=== PATIENT | female | born 1955 | race Caucasian/White ===

== ENCOUNTER 2018-09-29 01:52 | Outpatient (CLI) | payer MEDICARE, OTHER, SELFPAY ==
--- NOTE | 2018-09-29 12:30 | DI.CTLCSR_ITS ---
SYMPTOMS/DIAGNOSIS: COPD, Z87.891, FORMER SMOKER CHEST CT FOR LUNG CANCER SCREENING: A low dose screening protocol was performed. Comparison is made with September,. The heart size is normal. There is mild calcification at the aortic annulus. The aorta is normal in diameter. There is a small hiatal hernia. There are underlying emphysematous changes and mild fibrotic changes. Linear areas of atelectasis are seen in the lingula and right middle lobe, as well as right lung base. No pulmonary nodules are identified. IMPRESSION: Negative. Annual low dose screening CT is recommended. Lung-RAD Category: 1- Negative Lung- RAD Management of Findings: Continue annual LDCT screening in 12 months
== END 2018-09-29 02:12 ==
PROVIDERS: PCP Internal Medicine; Visit Provider Internal Medicine
DX: Z12.2 Encounter for screening for malignant neoplasm of respiratory organs (principal); J44.9 Chronic obstructive pulmonary disease, unspecified; Z87.891 Personal history of nicotine dependence; K44.9 Diaphragmatic hernia without obstruction or gangrene; J84.10 Pulmonary fibrosis, unspecified
CPT/HCPCS: G0297

== ENCOUNTER 2019-03-25 09:04 | Outpatient (REF) | payer MEDICARE, OTHER, SELFPAY ==
[2019-03-25 22:00] LABS: Anion Gap 8.5 mmol/L (3-11); BUN 14 mg/dL (7-18); CO2 29.5 mmol/L (21.0-32.0); CREATININE 0.77 mg/dL (0.55-1.02); Calcium 9.2 mg/dL (8.5-10.1); Calculated LDL 160 mg/dL; Chloride 104 mmol/L (98-107); Cholesterol 232 mg/dL (<200); Glucose 92 mg/dL (74-106); HDL Cholesterol 54 mg/dL (40-60); Potassium 4.2 mmol/L (3.5-5.1); Sodium 142 mmol/L (136-145); Triglyceride 91 mg/dL (<150)
== END 2019-03-25 09:24 ==
LOC: NCHCN 09:04
PROVIDERS: PCP Internal Medicine; Visit Provider Internal Medicine
DX: E78.00 Pure hypercholesterolemia, unspecified
CPT/HCPCS: 80048; 80061

== ENCOUNTER 2019-11-26 00:53 | Outpatient (CLI) | payer MEDICARE, OTHER, SELFPAY ==
--- NOTE | 2019-11-26 12:40 | DI.CTLCSR_ITS ---
EXAM: CT CHEST LUNG CANCER SCREEN CLINICAL HISTORY: FORMER SMOKER, Z87.891,SCREENING FOR LUNG CA TECHNIQUE: Imaging Protocol: Axial computed tomography images with coronal and sagittal reformatted images were created and reviewed COMPARISON: CT CT CHEST LUNG CANCER SCREEN from 09/29/2018 FINDINGS: Mediastinum and Bertha: No dominant adenopathy or fluid collection. Pulmonary parenchyma: Scarring is noted at the right lower lobe as well as right middle lobe and ling abdiel. There is [id number] changes of centrilobular emphysema, greatest at the lung apices.. Lung Nodules: None. Pleura: No effusion or pneumothorax. Heart: The heart is not dilated. No coronary artery calcifications are seen. Aorta: Thoracic aorta non-dilated.Mild calcification. Upper abdomen: Small hiatal hernia. Bones: Mild degenerative disc changes in the thoracic spine. Soft Tissues: Unremarkable. IMPRESSION: Normal low dose CT lung screening Lung RADS Cat 1 - Negative: No nodules and definitely benign nodules modifier S Lung-RADS 1.0 CATEGORIES: Category 0 - Prior chest CT exam(s) being located for comparison. Category 1 - Annual screening in 12 months. No nodules or definitely benign nodules. Category 2 - Annual screening in 12 months. Benign appearance. Nodules with low likelihood of becomin g active cancer. Category 3 - 6-month follow-up. Probably benign. Short-term follow-up suggested. Nodules with low lik elihood of becoming active cancer. Category 4A - 3-month follow-up and CT/PET if >8 mm in size. Suspicious finding. Findings which requi re additional testing. Category 4B - Findings which require additional testing and tissue sampling. Suspicious finding. C Added to Any of the Above - History of prior lung cancer screening. S Added to Any of the Above - Significant unexpected other finding. RADIATION DOSE DELIVERED: 71.91mGy.cm Total DLP DATA REPOSITORY: All CT scans at this facility are submitted to the National Radiology Data Registry (NRDR) Dose Index Registry (DIR) with the [employer] ([employer]). RADIATION OPTIMIZATION: All CT scans at this facility use at least one of these dose optimization te chniques: automated exposure control; mA and/or kV adjustment per patient size (includes targeted exa ms where dose is matched to clinical indication); or iterative reconstruction.
== END 2019-11-26 01:13 ==
PROVIDERS: PCP Internal Medicine; Visit Provider Internal Medicine
DX: Z12.2 Encounter for screening for malignant neoplasm of respiratory organs (principal); Z87.891 Personal history of nicotine dependence
CPT/HCPCS: G0297

== ENCOUNTER 2020-05-27 13:36 | Outpatient (REF) | payer MEDICARE, OTHER, SELFPAY ==
[2020-05-27 21:43] LABS: Anion Gap 7.6 mmol/L (3-11); BUN 9 mg/dL (7-18); CO2 30.4 mmol/L (21.0-32.0); CREATININE 0.7 mg/dL (0.55-1.02); Calculated LDL 176 mg/dL (<100); Chloride 106 mmol/L (98-107); Cholesterol 257 mg/dL (<200); Glucose 88 mg/dL (74-106); HDL Cholesterol 64 mg/dL (40-60); Potassium 3.6 mmol/L (3.5-5.1); Sodium 144 mmol/L (136-145); Triglyceride 86 mg/dL (<150)
== END 2020-05-27 13:37 | disposition home or self-care (01) ==
LOC: NCHCN 13:36
PROVIDERS: PCP Internal Medicine; Visit Provider Internal Medicine
DX: E78.00 Pure hypercholesterolemia, unspecified (principal)
CPT/HCPCS: 80048; 80061

== ENCOUNTER 2020-07-01 21:16 | Outpatient (REF) | payer MEDICARE, OTHER, SELFPAY ==
[2020-07-01 21:49] LABS: Abs Immature Grans 0.03 10^3/uL (0.0-0.06); Absolute Basophil Count 0.06 10^3/uL (0.0-0.2); Absolute Eosinophil Count 0.11 10^3/uL (0.0-0.7); Absolute Lymphocyte Count 1.97 10^3/uL (1.2-3.4); Absolute Monocyte Count 0.51 10^3/uL (0.1-0.8); Absolute Neutrophil Count 3.79 10^3/uL (1.2-6.7); Basophils % 0.9; Eosinophils % 1.7; HCT 45.4 % (36.0-46.0); HGB 14.2 g/dL (11.2-15.7); Immature Grans % 0.5; Lymphocytes % 30.4; MCH 27.5 pg (27.0-33.0); MCHC 31.3 % (32.0-36.0); MPV 10.1 fL (8.0-11.0); Monocytes % 7.9; Neutrophils % 58.6; Nucleated RBC 0 %; Platelet Count 280 10^3/uL (130-400); RBC 5.16 10^6/uL (3.93-5.22); RDW 13.2 % (11.7-14.6); RDW-SD 43.1 fL; WBC 6.47 10^3/uL (4.4-10.8)
[2020-07-01 22:08] LABS: ALT 25 U/L (14-59); AST 20 U/L (15-37); Albumin 3.8 g/dL (3.4-5.0); Alkaline Phosphatase 75 U/L (46-116); Bilirubin, Direct 0.1 mg/dL (0.0-0.2); Bilirubin, Total 0.5 mg/dL (0.2-1.0); TSH 1.66 uIU/mL (0.36-3.74); Total Protein 7.3 g/dL (6.4-8.2)
== END 2020-07-01 21:17 | disposition home or self-care (01) ==
LOC: NCHCN 21:16
PROVIDERS: PCP Internal Medicine; Visit Provider Internal Medicine
DX: R19.7 Diarrhea, unspecified (principal)
CPT/HCPCS: 80076; 84443; 85025

== ENCOUNTER 2020-07-05 09:52 | Outpatient (REF) | payer MEDICARE, OTHER, SELFPAY ==
[2020-07-05 17:35] LABS: C Diff PCR Negative (Negative)
[2020-07-06 10:33] LABS: Campylobacter PCR Negative (Negative); Salmonella PCR Negative (Negative); Shiga Toxin PCR Negative (Negative); Shigella/Enteroinvasive Ecoli Negative (Negative)
== END 2020-07-05 09:53 | disposition home or self-care (01) ==
LOC: NCHCN 09:52
PROVIDERS: PCP Internal Medicine; Visit Provider Internal Medicine
DX: R19.7 Diarrhea, unspecified (principal)
CPT/HCPCS: 87493; 87505; 87177

== ENCOUNTER 2020-07-15 16:54 | Outpatient (REF) | payer MEDICARE, OTHER, SELFPAY ==
[2020-07-15 13:29] LABS: Lipase 70 U/L (73-393)
[2020-07-18 15:04] LABS: IgA 329 mg/dL (85-499); Interpretation (See Note); Tissue Transglutaminase IgA <1.2 U/mL (<4.0)
== END 2020-07-15 16:55 | disposition home or self-care (01) ==
LOC: NCHCN 16:54
PROVIDERS: PCP Internal Medicine; Visit Provider Internal Medicine
DX: R10.13 Epigastric pain (principal); R19.7 Diarrhea, unspecified
CPT/HCPCS: 82784; 83516; 83690

== ENCOUNTER 2020-07-19 07:51 | Outpatient (REF) | payer MEDICARE, OTHER, SELFPAY | END 2020-07-19 07:52 | disposition home or self-care (01) | LOC: NCHCN 07:51 | PROVIDERS: PCP Internal Medicine; Visit Provider Internal Medicine | DX: R19.7 Diarrhea, unspecified (principal) | CPT/HCPCS: 83630 ==

== ENCOUNTER 2020-11-18 07:57 | Outpatient (CLI) | payer MEDICARE, OTHER, SELFPAY ==
--- OUTSIDE RECORDS SUMMARY | 2020-11-18 08:00 | XMS_ITS ---
:1955 Author Care Team Providers Name Role Phone [facility] REC[facility] Primary Care Provider [phone] SHARON AUGUSTE MD Primary Care Provider [phone] JAYE CHANCE MD [employer] [phone] Allergies Code Code System Name Reaction Severity Status Onset 5698921 RxNorm Daliresp Diarrhea ? Active ? 7980 RxNorm Penicillin g ? ? Active ? Medications Name Status Start Date Stop Date ? ? Advair Diskus 500 mcg-50 Active ? Not shari ilable mcg/dose powder for inhalation Anoro Ellipta 62.5 mcg-25 Active ? Not av ailable mcg/actuation powder for inhalation betamethasone dipropionate 0.05 Active ? Not available % topical ointment Daliresp 500 mcg tablet Completed 09/06/2014 12/07/19 15 1 (one) Tablet: qd - daily gatifloxacin 0.5 % eye drops Active ? Not available ketorolac 0.4 % eye drops Active ? Not av ailable nicotine 14 mg/24 hr daily Active ? Not a vailable transdermal patch omeprazole 20 mg Active ? Not available capsule,delayed release paroxetine 30 mg tablet Active ? Not avai lable prednisolone acetate 1 % eye Active ? Not available drops,suspension ProAir HFA 90 mcg/actuation Active ? Not available aerosol inhaler Trelegy Ellipta 100 mcg-62.5 mcg-25 mcg powder for inhalation Ac tive ? Not available Inhale 1 puff every day by inhalation route. Problems Name Status Onset Date Source ? Vitamin D Deficiency Active 10/16/2017 ? Hypercholesterolemia Active 10/16/2017 ? Anxiety Active 10/16/2017 ? Depressive Disorder Active 10/16/2017 ? Allergic Rhinitis Active 10/16/2017 ? Chronic Obstructive Lung Disease Active 10/16/2017 ? Gastroesophageal Reflux Disease Active 10/16/2017 ? Emphysematous Bleb of Lung Active ? Histo ry Procedures Date Name Performed by ? 09/11/2017 LDCT, Chest, for Lung Cancer [facility] Radiology (Internal) Screening [address] [place] [address] ([address]) 10/17/2017 LDCT, Chest, for Lung Cancer Xray [facility] Screening [address] [place], [place] [address] ([address]) 11/23/2019 LDCT, Chest, for Lung Cancer [facility] Radiology (Internal) Screening [address] [place] [address] ([address]) Results Lab Results None recorded. Past Encounters None recorded. Social History Tobacco Smoking Status Former Smoker Notes: 46 yrs. X 2 ppd Vaccine List Vaccine Type pneumococcal, unspecified formulation 04/08/2012 Plan of Care Reminders Provider Appointments None ? ? recorded. Lab None ? ? recorded. Referral None ? ? recorded. Procedures None ? ? recorded. Surgeries None ? ? recorded. Imaging None ? ? recorded. Vitals 10/17/2017 01:30PM Office 15 Height Weight BMI Blood Pressure 152.4 cm 73.03 kg 31.4 kg/m2 144/80 mm[Hg] 10/31/2015 Weight Blood Pressure 69.49 kg 104/59 mm[Hg] 10/31/2015 Height 152.4 cm 12/06/2014 Weight Blood Pressure 74.39 kg 100/70 mm[Hg] 12/06/2014 Height 152.4 cm 09/06/2014 Height 152.4 cm 09/06/2014 Weight Blood Pressure 74.39 kg 124/78 mm[Hg]
[2020-11-18] MEDS: Albuterol HFA 18 GM 200 PUFF INH IH (08:57)
[2020-11-18] MEDS: Inhaler, Assist Device 1 EACH MC (08:57)
--- NOTE | 2020-11-18 14:53 | W.PFT ---
Date of service: 11/18/20 Time of Service: 08:02 Pulmonary Function Test Result Requesting Provider Laurie Interpretation Spirometry: There is moderate airflow obstruction with a significant bronchodilator response (16% and 370 cc) Lung Volumes: Patient declined pleth due to feeling of suffocation. Diffusion Capacity: There is reduced diffusion. Impression Moderate airflow obstruction with a significant bronchodilator response and reduced diffusion Note: Compared to spirometry performed October 17, 2017 there is minimal change in FEV1 and FVC. Clinical Correlation therefore is recommended.
== END 2020-11-18 07:58 | disposition home or self-care (01) ==
LOC: RT 07:57
PROVIDERS: PCP Internal Medicine; Visit Provider Student in an Organized Health Care Education/Training Program
DX: J44.9 Chronic obstructive pulmonary disease, unspecified (principal)
CPT/HCPCS: 94060; 94729

== ENCOUNTER 2020-12-02 03:35 | Outpatient (CLI) | payer MEDICARE, OTHER, SELFPAY ==
--- NOTE | 2020-12-02 07:00 | DI.CTLCSR_ITS ---
Exam(s) CT CHEST LUNG CANCER SCREEN EXAM: CT CHEST LUNG CANCER SCREEN CLINICAL HISTORY: Screening for lung cancer, CURRENT SMOKER, F17.210 TECHNIQUE: COMPARISON: CT CT CHEST LUNG CANCER SCREEN from 11/26/2019 FINDINGS: Noncontrast CT examination of the chest was performed utilizing low-dose lung cancer screening protoc ol. Images obtained through the upper show unremarkable appearance of visualized portions liver and spleen. There is a hiatal hernia. No mediastinal or hilar by noncontrast criteria. There is a new spiculated right upper lung mean diameter roughly 14 millimeters. This was not presen t on prior examination of November 2019. This is very suspicious for lung carcinoma. Note is again made right middle lobe and lingular areas of atelectasis and/or scarring, grossly uncha nged from prior study. Note is again made of severe central lobular emphysematous changes. IMPRESSION: Very suspicious new spiculated right apical lung mass. Biopsy recommended. No additional findings t o suggest metastatic disease. Lung RADS Cat 4B - Suspicious: Findings for which additional diagnostic testing and/or tissue sampli ng is recommended RADIATION DOSE DELIVERED: 94.56mGy.cm Total DLP 1.84mGy CTDIvol RADIATION OPTIMIZATION: All CT scans at this facility use at least one of these dose optimization te chniques: automated exposure control; mA and/or kV adjustment per patient size (includes targeted exa ms where dose is matched to clinical indication); or iterative reconstruction.
== END 2020-12-02 03:55 ==
PROVIDERS: PCP Internal Medicine; Visit Provider Student in an Organized Health Care Education/Training Program
DX: F17.210 Nicotine dependence, cigarettes, uncomplicated; Z12.2 Encounter for screening for malignant neoplasm of respiratory organs; R91.8 Other nonspecific abnormal finding of lung field
CPT/HCPCS: 71271

== ENCOUNTER 2021-05-29 18:30 | Outpatient (REF) | payer MEDICARE, OTHER, SELFPAY ==
[2021-05-31 12:43] LABS: COVID-19 RT-PCR UVMMC Result Negative (Negative)
== END 2021-05-29 18:31 | disposition home or self-care (01) ==
LOC: NCHCN 18:30
PROVIDERS: PCP Internal Medicine; Visit Provider Nurse Practitioner Family
DX: Z20.822 Contact with and (suspected) exposure to COVID-19 (principal); J06.9 Acute upper respiratory infection, unspecified
CPT/HCPCS: U0003

== ENCOUNTER 2021-08-08 17:25 | Outpatient (REF) | payer MEDICARE, OTHER, SELFPAY ==
[2021-08-08 14:48] LABS: BUN 9 mg/dL (7-18); CREATININE 0.8 mg/dL (0.55-1.02); Calcium 8.8 mg/dL (8.5-10.1); Calculated LDL 179 mg/dL (<100); Chloride 104 mmol/L (98-107); Cholesterol 268 mg/dL (<200); Glucose 89 mg/dL (74-106); HDL Cholesterol 70 mg/dL (40-60); Potassium 4.3 mmol/L (3.5-5.1); Sodium 141 mmol/L (136-145); Triglyceride 97 mg/dL (<150)
[2021-08-10 01:57] LABS: Vitamin D 25 Total 7.1 ng/mL (30-100)
== END 2021-08-08 17:26 | disposition home or self-care (01) ==
LOC: NCHCN 17:25
PROVIDERS: PCP Internal Medicine; Visit Provider Internal Medicine
DX: E78.00 Pure hypercholesterolemia, unspecified (principal); E55.9 Vitamin D deficiency, unspecified
CPT/HCPCS: 80048; 80061; 82306

== ENCOUNTER 2021-08-25 15:50 | Outpatient (REF) | payer MEDICARE, OTHER, SELFPAY ==
--- NOTE | 2021-08-25 13:35 | PAPFT_PTH ---
PATIENT: Loli Gómez LOC: [facility]#:[id number] AGE/SX: 66/F ROOM: RE08/25/[address]: Tarsha Britton : 1955 BED: DIS: 08/25/2021 SPEC #: [id number] RECD: 08/28/21 13:00 STATUS: JEFFERSON RAND #: [id number] ISHA: 08/25/21 13:[address]: Tarsha Britton [facility]PT[facility] Cytology RECD BY: Jayleen Pritchett Tissues: 1 - CX/ENDOCX FOR PAP SMEARS Procedures: PAP THIN PREP/[facility] Screening HPV DNA PROBE Comments: [id number]
== END 2021-08-25 15:51 | disposition home or self-care (01) ==
LOC: NCHCN 15:50
PROVIDERS: PCP Internal Medicine; Visit Provider Internal Medicine
DX: Z12.4 Encounter for screening for malignant neoplasm of cervix (principal); Z11.51 Encounter for screening for human papillomavirus (HPV); Z01.419 Encounter for gynecological examination (general) (routine) without abnormal findings
CPT/HCPCS: 88142; 87624

== ENCOUNTER 2021-11-20 14:44 | Outpatient (REF) | payer MEDICARE, OTHER, SELFPAY ==
[2021-11-20 21:15] LABS: Calculated LDL 95 mg/dL (<100); Cholesterol 172 mg/dL (<200); HDL Cholesterol 65 mg/dL (40-60); Triglyceride 63 mg/dL (<150)
[2021-11-20 21:33] LABS: Vitamin D 25 Total 24.2 ng/mL (30-100)
== END 2021-11-20 14:45 | disposition home or self-care (01) ==
LOC: NCHCN 14:44
PROVIDERS: PCP Internal Medicine; Visit Provider Internal Medicine
DX: E78.00 Pure hypercholesterolemia, unspecified (principal); E55.9 Vitamin D deficiency, unspecified
CPT/HCPCS: 80061; 82306

== ENCOUNTER 2022-11-26 11:56 | Outpatient (REF) | payer MEDICARE, SELFPAY ==
[2022-11-26 15:52] LABS: Anion Gap 8.4 mmol/L (3-11); BUN 11 mg/dL (7-18); CO2 28.6 mmol/L (21.0-32.0); CREATININE 0.8 mg/dL (0.55-1.02); Calcium 8.7 mg/dL (8.5-10.1); Calculated LDL 81 mg/dL (<100); Chloride 103 mmol/L (98-107); Cholesterol 172 mg/dL (<200); Estimated GFR 81.72 (mL/min/1.73m2); Glucose 83 mg/dL (74-106); HDL Cholesterol 75 mg/dL (40-60); Potassium 3.4 mmol/L (3.5-5.1); Sodium 140 mmol/L (136-145); Triglyceride 81 mg/dL (<150)
== END 2022-11-26 11:57 | disposition home or self-care (01) ==
LOC: NCHCN 11:56
PROVIDERS: PCP Internal Medicine; Visit Provider Internal Medicine
DX: E78.00 Pure hypercholesterolemia, unspecified (principal); Z79.899 Other long term (current) drug therapy; Z51.81 Encounter for therapeutic drug level monitoring
CPT/HCPCS: 80048; 80061

== ENCOUNTER 2022-12-27 18:21 | Outpatient (REF) | payer MEDICARE, SELFPAY ==
[2022-12-27 18:04] LABS: Abs Immature Grans 0.03 10^3/uL (0.0-0.06); Absolute Basophil Count 0.05 10^3/uL (0.0-0.2); Absolute Eosinophil Count 0.09 10^3/uL (0.0-0.7); Absolute Lymphocyte Count 1.53 10^3/uL (1.2-3.4); Absolute Monocyte Count 0.62 10^3/uL (0.1-0.8); Absolute Neutrophil Count 3.65 10^3/uL (1.2-6.7); Basophils % 0.8; Eosinophils % 1.5; HCT 46.3 % (36.0-46.0); HGB 14.2 g/dL (11.2-15.7); Immature Grans % 0.5; Lymphocytes % 25.6; MCH 27.8 pg (27.0-33.0); MCHC 30.7 % (32.0-36.0); MCV 91 fL (80-95); Monocytes % 10.4; Neutrophils % 61.2; Platelet Count 237 10^3/uL (130-400); RDW 14.8 % (11.7-14.6); RDW-SD 49.9 fL; WBC 5.97 10^3/uL (4.4-10.8)
== END 2022-12-27 18:22 | disposition home or self-care (01) ==
LOC: LBN 18:21
PROVIDERS: PCP Internal Medicine; Visit Provider Physician Assistant Surgical
DX: R06.89 Other abnormalities of breathing (principal); R06.09 Other forms of dyspnea
CPT/HCPCS: 85025

== ENCOUNTER 2023-01-28 18:47 | Outpatient (REF) | payer MEDICARE, OTHER, SELFPAY ==
[2023-01-28 21:46] LABS: Potassium 3.8 mmol/L (3.5-5.1)
[2023-01-28 23:01] LABS: Vitamin D 25 Total 20.7 ng/mL (30-100)
== END 2023-01-28 18:48 | disposition home or self-care (01) ==
LOC: NCHCN 18:47
PROVIDERS: PCP Internal Medicine; Visit Provider Internal Medicine
DX: E55.9 Vitamin D deficiency, unspecified (principal); E87.6 Hypokalemia
CPT/HCPCS: 82306; 84132

== ENCOUNTER → 2023-09-23 11:03 | Outpatient (BNVA) | payer MEDICARE, OTHER, SELFPAY | PROVIDERS: PCP Internal Medicine; Referring Provider Internal Medicine; Visit Provider Physician Assistant Surgical | DX: J44.9 Chronic obstructive pulmonary disease, unspecified (principal); R91.8 Other nonspecific abnormal finding of lung field; Z72.0 Tobacco use; R06.00 Dyspnea, unspecified; R06.89 Other abnormalities of breathing | CPT/HCPCS: 99214 ==

== ENCOUNTER 2023-10-30 14:23 | Outpatient (REF) | payer MEDICARE, OTHER, SELFPAY ==
[2023-10-30 15:50] LABS: Anion Gap 7.8 mmol/L (3-11); BUN 10 mg/dL (7-18); CO2 30.2 mmol/L (21.0-32.0); CREATININE 0.8 mg/dL (0.55-1.02); Calcium 9.4 mg/dL (8.5-10.1); Chloride 105 mmol/L (98-107); Estimated GFR 81.21 (mL/min/1.73m2); Glucose 101 mg/dL (74-106); Potassium 4.5 mmol/L (3.5-5.1); Sodium 143 mmol/L (136-145); Vitamin D 25 Total 28.8 ng/mL (30-100)
== END 2023-10-30 14:24 | disposition home or self-care (01) ==
LOC: NCHCN 14:23
PROVIDERS: PCP Internal Medicine; Visit Provider Internal Medicine
DX: M81.0 Age-related osteoporosis without current pathological fracture (principal); I95.1 Orthostatic hypotension
CPT/HCPCS: 80048; 82306

== ENCOUNTER 2024-07-27 19:00 | Outpatient (REF) | payer MEDICARE, OTHER, SELFPAY ==
[2024-07-27 15:02] LABS: HCT 43.8 % (36.0-46.0); HGB 13.5 g/dL (11.2-15.7); MCH 28.4 pg (27.0-33.0); MCHC 30.8 % (32.0-36.0); MCV 92 fL (80-95); MPV 10.3 fL (8.0-11.0); Platelet Count 220 10^3/uL (130-400); RBC 4.75 10^6/uL (3.93-5.22); RDW 13.8 % (11.7-14.6); RDW-SD 47.2 fL; WBC 4.89 10^3/uL (4.4-10.8)
[2024-07-27 15:46] LABS: ALT 31 U/L (14-59); AST 28 U/L (15-37); Albumin 3.7 g/dL (3.4-5.0); Alkaline Phosphatase 78 U/L (46-116); Anion Gap 7.1 mmol/L (3-11); BUN 6 mg/dL (7-18); Bilirubin, Total 0.7 mg/dL (0.2-1.0); CO2 28.9 mmol/L (21.0-32.0); CREATININE 0.8 mg/dL (0.55-1.02); Calculated LDL 88 mg/dL (<100); Chloride 107 mmol/L (98-107); Cholesterol 171 mg/dL (<200); Estimated GFR 80.71 (mL/min/1.73m2); Glucose 96 mg/dL (74-106); HDL Cholesterol 70 mg/dL (>or=50); Potassium 4.1 mmol/L (3.5-5.1); Sodium 143 mmol/L (136-145); Total Protein 7.5 g/dL (6.4-8.2); Triglyceride 69 mg/dL (<150); Vitamin D 25 Total 25 ng/mL (30-100)
== END 2024-07-27 19:01 | disposition home or self-care (01) ==
LOC: NCHCN 19:00
PROVIDERS: PCP Internal Medicine; Visit Provider Internal Medicine
DX: E78.5 Hyperlipidemia, unspecified (principal); E55.9 Vitamin D deficiency, unspecified; J44.9 Chronic obstructive pulmonary disease, unspecified
CPT/HCPCS: 80053; 80061; 82306; 85027

== ENCOUNTER → 2024-08-12 10:48 | Outpatient (BNVA) | payer MEDICARE, OTHER, SELFPAY | PROVIDERS: PCP Internal Medicine; Referring Provider Internal Medicine; Visit Provider Physician Assistant Surgical | DX: J44.9 Chronic obstructive pulmonary disease, unspecified (principal); R91.8 Other nonspecific abnormal finding of lung field; Z72.0 Tobacco use; R06.00 Dyspnea, unspecified; R06.89 Other abnormalities of breathing | CPT/HCPCS: 99215 ==

== ENCOUNTER → 2025-02-04 08:32 | Outpatient (BNVA) | payer MEDICARE, OTHER, SELFPAY | PROVIDERS: PCP Internal Medicine; Referring Provider Internal Medicine; Visit Provider Physician Assistant Surgical | DX: J44.9 Chronic obstructive pulmonary disease, unspecified (principal); R91.8 Other nonspecific abnormal finding of lung field; Z72.0 Tobacco use; R06.89 Other abnormalities of breathing | CPT/HCPCS: 99214 ==